=== PATIENT | female | born 2005 | race Two or more races ===

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

== ENCOUNTER 2025-06-20 23:54 | Emergency (ER) | payer SELFPAY ==
[~2025-06-20] VITALS: Ht 162.6 cm; Wt 71.8 kg
--- NOTE | 2025-06-21 00:39 | ED.PDOC ---
MIXED [employer]IAN HPI Comments 20 year old female with a Hx of an 2x weeks ago presents to the ED for the c/c of Abnormal Vaginal Bleeding, w/ associated N/V, and Foul Vaginal Odor. Pt states that her pain comes and goes, and started after her . Pt states that recently started passing blood clots. No other associated symptoms, modifiers, recent injuries or sick contacts present at this time. Chief Complaint: Vaginal Bleed Time Seen by MD: 00:34 Reviewed Notes: Nurses Notes, Medications, Allergies Allergies: Coded Allergies: Cephalexin (Verified Allergy, Unknown, 04/12/21) Home Meds Active Scripts Misoprostol (Cytotec) 200 Mcg Tab, 4 TAB VG ONCE, #4 TAB Prov:LINDSEY SANDOVAL MD 06/21/25 Sulfamethoxazole W/Trimethopri (Bactrim Ds Tablet) 1 Tab Tb, 1 TAB PO BID for 10 Days, #20 TAB Prov:LINDSEY SANDOVAL MD 06/21/25 Information Source: Patient, Relative (Mother) Mode of Arrival: Ambulatory Timing: Weeks Prehospital treatment: None Severity: Moderate Vaginal Discharge: None Vaginal Lesions: None Bleeding Quality: Clotted Vaginal Mass: None Onset Of Mass/Bleeding: Unknown Sexual Activity: Sexually Active Last Consensual [place]: Unknown Control: None Blood Type: Unknown Symptoms of Possible : Nausea, Vomiting Associated Signs and Symptoms: Vaginal Discharge, Vaginal Bleeding Past Medical History PAST MEDICAL HISTORY: Denies 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 Family History Family History: No family hx of Cancer, No family hx of DM, No family hx of Heart jennifer Social History Smoker: Non-Smoker Alcohol: Occasionally Drugs: Marijuana Constitutional: denies: chills, diaphoresis, fatigue, fever, malaise, sweats, weakness, others EENTM: denies: blurred vision, double vision, ear bleeding, ear discharge, ear drainage, ear pain, ear ringing, eye pain, eye redness, hearing loss, mouth pain, mouth swelling, nasal discharge, nose bleeding, nose congestion, nose pain, photophobia, tearing, throat pain, throat swelling, voice changes, others Respiratory: denies: cough, hemoptysis, orthopnea, SOB at rest, shortness of breath, SOB with excertion, stridor, wheezing, others Cardiovascular: denies: chest pain, dizzy spells, diaphoresis, Dyspnea on exertion, edema, irregular heart beat, left arm pain, lightheadedness, palpitations, PND, syncope, others Gastrointestinal: reports: nausea, vomiting; denies: abdomen distended, abdominal pain, blood streaked bowels, constipated, diarrhea, dysphagia, difficulty swallowing, hematemesis, melena, poor appetite, poor fluid intake, rectal bleeding, rectal pain, others Genitourinary: reports: abnormal vagina bleeding; denies: burning, dyspareunia, dysuria, flank pain, frequency, hematuria, incontinence, pain, , vagina discharge, urgency, others Neurological: denies: dizziness, fainting, headache, left sided numbness, left sided weakness, numbness, paresthesia, pre-existing deficit, right sided numbness, right sided weakness, seizure, speech problems, tingling, tremors, weakness, others Musculoskeletal: denies: back pain, gout, joint pain, joint swelling, muscle pain, muscle stiffness, neck pain, others Integumetry: denies: bruises, change in color, change in hair/nails, dryness, laceration, lesions, lumps, rash, wounds, others Allergic/Immunocompromised: denies: Difficulty Healing, Frequent Infections, Hives, Itching, others Hematologic/Lymphatic: denies: anemia, blood clots, easy bleeding, easy bruising, swollen glands, others Endocrine: denies: excessive hunger, excessive sweating, excessive thirst, excessive urination, flushing, intolerance to cold, intolerance to heat, unexplained weight gain, unexplained weight loss, others Psychiatric: denies: anxiety, bipolar disorder, depression, hopeless, panic disorder, schizophrenia, sleepless, suicidal, others All Other Systems: Reviewed and Negative Physical Exam General Appearance: Mild Distress, Normal HEENT: Normal ENT Inspection, Pharynx Normal, TMs Normal Neck: Full Range of Motion, Non-Tender, Normal, Normal Inspection Respiratory: Chest Non-Tender, Lungs Clear, No Accessory Muscle Use, No Respiratory Distress, Normal Breath Sounds Cardiovascular: No Edema, No JVD, No Murmur, No Gallop, Normal Peripheral Pulses, Regular Rate/Rhythm Breast Exam: Deferred Gastrointestinal: No Organomegaly, Non Tender, No Pulsatile Mass, Normal Bowel Sounds, Soft Genitalia: Deferred Pelvic: Deferred Rectal: Deferred Extremities: No calf tenderness, Normal capillary refill, Normal inspection, Normal range of motion, Non-tender, No pedal edema Musculoskeletal : Apperance: Normal Neurologic: Alert, No Motor Deficits, Normal Affect, Normal Mood, No Sensory Deficits Cerebellar Function: Normal Reflexes: Normal Skin: Dry, Normal Color, Warm Lymphatic: No Adenopathy Was a procedure done? Was a procedure done?: No Differential Diagnosis (INSULATION MANAGER) Vaginal Bleeding: - Complete, - Incomplete, Abruptio Placentae, Blood Loss Anemia, Cervicitis, Dysmenorrhea, Ectopic , Menometrorrhagia, Menstrual Bleeding, Trauma, UTI, Vaginitis Vaginal Discharge: Foreign Body, Physiologic Discharge, PID, , UTI, Vaginitis - Bacterial, Vaginitis - Herpes X-Ray, Labs, Meds, VS Vital Signs Date Time Temp Pulse Resp B/P (MAP) Pulse Ox O2 Delivery O2 Flow Rate FiO2 06/21/25 04:11 98.5 90 20 114/62 (79) 96 98.5 06/21/25 02:05 98.4 82 20 110/59 (76) 96 98.4 06/21/25 00:23 99.1 96 18 111/75 (87) 96 99.1 Lab Test 06/21/25 00:42 06/21/25 00:30 Range/Units White Blood Count 11.9 H 4.4-10.8 10^3/uL Red Blood Count 4.31 4.0-5.20 10^6/uL Hemoglobin 13.8 12.2-16.2 g/dL Hematocrit 39.1 36.0-46.0 % Mean Corpuscular Volume 90.7 80.0-100.0 fL Mean Corpuscular Hemoglobin 32.1 H 28.0-32.0 pg Mean Corpuscular Hemoglobin Concent 35.4 32.0-36.0 g/dL Red Cell Distribution Width 13.0 11.8-14.3 % Platelet Count 341 140-450 10^3/uL Mean Platelet Volume 8.6 6.9-10.8 fL Neutrophils (%) (Auto) 72.2 37.0-80.0 % Lymphocytes (%) (Auto) 17.4 10.0-50.0 % Monocytes (%) (Auto) 7.7 0.0-12.0 % Eosinophils (%) (Auto) 2.2 0.0-7.0 % Basophils (%) (Auto) 0.5 0.0-2.0 % Neutrophils # (Auto) 8.6 1.6-8.6 10 ^3/uL Lymphocytes # (Auto) 2.1 0.4-5.4 10 ^3/uL Monocytes # (Auto) 0.9 0-1.3 10 ^3/uL Eosinophils # (Auto) 0.3 0-0.8 10 ^3/uL Basophils # (Auto) 0.1 0-0.2 10 ^3/uL Nucleated Red Blood Cells 0.1 % Sodium Level 143 136-145 mmol/L Potassium Level 3.3 L 3.5-5.1 mmol/L Chloride Level 106 98-107 mmol/L Carbon Dioxide Level 27 20-31 mmol/L Anion Gap 10 5-15 Blood Urea Nitrogen 11 9-23 mg/dL Creatinine 0.72 0.550-1.02 mg/dL Glomerular Filtration Rate Calc 122 >90 mL/min BUN/Creatinine Ratio 15.3 10.0-20.0 Serum Glucose 99 74-106 mg/dL Calcium Level 9.7 8.7-10.4 mg/dL Beta HCG, Quantitative 323.6 H 1.5-4.2 mIU/mL Urine Color Light-red Yellow Urine Clarity Ex.turbid Clear Urine pH 5.5 5.0-9.0 Urine Specific [place] 1.023 1.001-1.035 Urine Protein 1+ H Negative Urine Ketones Negative Negative Urine Blood 3+ H Negative /uL Urine Nitrite Negative Negative Urine Bilirubin Negative Negative Urine Urobilinogen Normal Negative mg/dL Urine Leukocyte Esterase 2+ Negative /uL Urine RBC 9851 0 - 4 /hpf Urine WBC Clumps Present None Seen /hpf Urine Microscopic WBC 394 H 0-5 /HPF Urine Squamous Epithelial Cells None seen <5 /hpf Urine Bacteria None seen None Seen /hpf Urine Glucose Normal Normal mg/dL Current Medications Medications (Trade) Dose Ordered Sig/Chelsey Route Start Time Stop Time Status Last Admin Trimethoprim/ Sulfamethoxazole (Bactrim Ds Tablet) 1 tab ONCE ONCE PO 06/21/25 04:15 06/21/25 04:16 DC 06/21/25 04:21 PATIENT: TALAT CALHOUN ACCT: [id number] UNIT: [id number] : 2005 LOC: ER ROOM / BED: / AGE / SEX: 20 / F ADM STATUS: REG ER SERVICE [id number] ORDERING PHYSICIAN: LINDSEY SANDOVAL MD PROCEDURE(s): OB4US - OB ULTRASOUND COMP LESS 14WKS REASON: vag bleeding s/p elective ORDER NUMBER(s): [id number], ACCESSION NUMBER(s): [id number] INDICATION: vag bleeding s/p elective TECHNIQUE: Multiple real-time grayscale transabdominal sonographic images along with color and duplex Doppler of the uterus and ovaries were obtained. COMPARISON: None FINDINGS: The uterus measures 8.3 x 4.5 x 3.6 cm. The endometrial stripe measures 0.9 cm. Questionable intrauterine gestational sac within the lower uterine segment with internal echoes possibly representing a pole. This structure measures 0.6 cm with a questionable crown-rump length of 0.2 cm corresponding with a 5 week 3 day gestation. No evidence of yolk sac or heart tones. Trace fluid within the cervix as well as within the pelvic cul-de-sac. Right ovary measures 3.1 x 1.9 x 1.8 cm with normal Doppler color flow. Left ovary measures 2.2 x 1.8 x 1.4 cm with normal Doppler color flow. IMPRESSION: 1. Questionable intrauterine gestational sac corresponding with a 5 week 3 day gestation. No identifiable yolk sac or heart tones. 2. Trace cervical and pelvic cul-de-sac free fluid. Time of 1ST Reevaluation: 01:05 Reevaluation 1ST: Unchanged Patient Education/Counseling: Diagnosis, Treatment, Need For Follow Up Family Education/Counseling: Diagnosis, Treatment, Need For Follow Up Departure 1 Departure Time of Disposition: 03:30 Impression: Primary Impression: UTI (urinary tract infection) Additional Impression: Incomplete Disposition: 01 HOME / SELF CARE / HOMELESS Condition: Stable e-Prescriptions Misoprostol (Cytotec) 200 Mcg Tab 4 TAB VG ONCE, #4 TAB Prov: LINDSEY SANDOVAL MD 06/21/25 Sulfamethoxazole W/Trimethopri (Bactrim Ds Tablet) 1 Tab Tb 1 TAB PO BID for 10 Days, #20 TAB Prov: LINDSEY SANDOVAL MD 06/21/25 Discharged With: Self Critical Care Note Critical Care Time?: No Stability Stability form required: No Heart Score Heart Score: Heart Score Response (Comments) Value History N/A 0 EKG N/A 0 Age N/A 0 Risk Factors N/A 0 Troponin N/A 0 Total 0 I personally scribed for LINDSEY SANDOVAL MD ([email or web address]) on 06/21/25 at 00:39. Electronically submitted by Serjio Bardales ([email or web address]). I personally scribed for LINDSEY SANDOVAL MD ([email or web address]) on 06/21/25 at 03:59. Electronically submitted by Serjio Bardales ([email or web address]). LINDSEY SANDOVAL MD Jun 21, 2025 00:39
[2025-06-21 00:57] LABS: Hematocrit 39.1 % (36.0-46.0); Hemoglobin 13.8 g/dL (12.2-16.2); Mean Corpuscular Hemoglobin 32.1 pg (28.0-32.0); Mean Corpuscular Volume 90.7 fL (80.0-100.0); Nucleated Red Blood Cells % 0.1 %
[2025-06-21 01:06] LABS: Chloride 106 mmol/L (98-107); Sodium 143 mmol/L (136-145)
[2025-06-21 01:07] LABS: Anion Gap 10 (5-15); Calcium 9.7 mg/dL (8.7-10.4); Carbon Dioxide 27 mmol/L (20-31)
[2025-06-21 01:12] LABS: BUN/Creatinine Ratio 15.3 (10.0-20.0); Blood Urea Nitrogen 11 mg/dL (9-23); Glucose 99 mg/dL (74-106)
[2025-06-21 01:13] LABS: Potassium 3.3 mmol/L (3.5-5.1)
[2025-06-21 01:59] LABS: Urine Protein, UAD 1+ (Negative); Urine WBC Clumps PRESENT /hpf (None Seen)
--- NOTE | 2025-06-21 02:25 | DVH ---
INDICATION: vag bleeding s/p elective TECHNIQUE: Multiple real-time grayscale transabdominal sonographic images along with color and duplex Doppler of the uterus and ovaries were obtained. COMPARISON: None FINDINGS: The uterus measures 8.3 x 4.5 x 3.6 cm. The endometrial stripe measures 0.9 cm. Questionabl e intrauterine gestational sac within the lower uterine segment with internal echoes possibly represe nting a pole. This structure measures 0.6 cm with a questionable crown-rump length of 0.2 cm co rresponding with a 5 week 3 day gestation. No evidence of yolk sac or heart tones. Trace fluid within the cervix as well as within the pelvic cul-de-sac. Right ovary measures 3.1 x 1.9 x 1.8 cm with normal Doppler color flow. Left ovary measures 2.2 x 1.8 x 1.4 cm with normal Doppler color flow. IMPRESSION: 1. Questionable intrauterine gestational sac corresponding with a 5 week 3 day gestation. No identif iable yolk sac or heart tones. 2. Trace cervical and pelvic cul-de-sac free fluid.
[2025-06-21] MEDS ORDERED: BACDST PO (04:09)
[2025-06-21 04:11] VITALS: BP 114/62; PULSE 90; RESP 20; TEMP 98.5; O2SAT 96
[2025-06-21] MEDS ORDERED: MISO200T67 VG (04:13)
[2025-06-21] MEDS: SULFAMETHOX W/TRIMETH(800/160MG) DS TAB PO ONE (04:21)
== END 2025-06-21 04:23 | disposition home or self-care (01) ==
LOC: ER 23:54
DX: O03.4 Incomplete spontaneous abortion without complication (principal); R10.2 Pelvic and perineal pain; O23.40 Unspecified infection of urinary tract in pregnancy, unspecified trimester; N39.0 Urinary tract infection, site not specified; O99.320 Drug use complicating pregnancy, unspecified trimester; F12.90 Cannabis use, unspecified, uncomplicated; Z79.899 Other long term (current) drug therapy; Z88.1 Allergy status to other antibiotic agents
CPT/HCPCS: 36415; 76801; 76817; 80048; 81001; 84702; 85025; 86850; 86900; 86901